=== PATIENT | female | born 1935 | race Caucasian/White ===

== ENCOUNTER 2016-05-05 08:14 | Emergency (ER) | payer MEDICARE, OTHER ==
[2016-05-05] MEDS ORDERED: ASPIRIN 81 MG CHEW TAB ONE (08:27)
== END 2016-05-05 13:28 ==
LOC: ER 08:14
DX: R07.2 Precordial pain (principal); G30.9 Alzheimer's disease, unspecified
CPT/HCPCS: 36415; 71010; 80053; 82550; 83735; 84484; 85025; 85610; 85730; 93005